=== PATIENT | male | born 1980 | race Caucasian/White ===

== ENCOUNTER → 2016-09-27 | Outpatient (CLI) | payer BC ==
[2016-09-27 15:31] LABS: CHLORIDE,CL 106 mmol/L (98-110); SODIUM,NA 140 mmol/L (136-146)
== END ==
LOC: MW.CHFP 14:47
PROVIDERS: ATTEND Student in an Organized Health Care Education/Training Program
DX: E29.1 Testicular hypofunction (principal)
CPT/HCPCS: 36415; 80053; 84402; 84403; 85025

== ENCOUNTER → 2016-10-21 | Outpatient (CLI) | payer OTHER ==
--- NOTE | 2016-10-21 14:37 | CR ---
EXAMINATION: Left knee HISTORY: Injury COMPARISON: None TECHNIQUE: 4 views FINDINGS/IMPRESSION: There is no acute osseous abnormality, dislocation, or fracture. Bone mineraliz ation and joint spaces appear normal. There is prominent prepatellar soft tissue thickening.
== END ==
LOC: MW.CHFP 10:22
PROVIDERS: ATTEND Physician Assistant
DX: S89.92XA Unspecified injury of left lower leg, initial encounter (principal); M79.89 Other specified soft tissue disorders
CPT/HCPCS: 73564-26-LT; 73564-LT

== ENCOUNTER 2017-03-10 20:41 | Observation (INO) | payer BC ==
[~2017-03-10 20:41] MED LIST: Diltiazem 25 MG/5 ML SDV IVPUSH ONE
[2017-03-10] MEDS ORDERED: Sodium Chloride 0.9% 1,000 ML IV ONE ×2 (20:54→21:34)
[2017-03-10] MEDS ORDERED: Diltiazem 25 MG/5 ML SDV IVPUSH ONE ×2 (20:54→21:24)
--- NOTE | 2017-03-10 20:55 | EDM.PDOC ---
ED HPI GENERAL MEDICAL PROBLEM - General Chief Complaint: Chest Pain Stated Complaint: CHEST PAIN Time Seen by Provider: 03/10/17 20:54 Source of Information: Reports: Patient - History of Present Illness INITIAL COMMENTS - FREE TEXT/NARRATIVE: HISTORY AND PHYSICAL: History of present illness: []Patient presents with right-sided chest pain radiating into the right arm he rates 5 out of 10 there is a reproducible component no radiation to neck or jaw not associated with shortness of breath or diaphoresis However his rate is in the 150s he received Cardizem 20 mg IV followed by 25 mg of Cardizem which did control rate along with digoxin 0.125 and 2 L bolus Currently he is resting easily in the 80s for her rate cautery still does have the pain is a reproducible component to the pain there is clear muscle spasm over right pack major No fever nausea vomiting chills sweats Denies chronic illness disease alcoholism or illicit drug use Review of systems: As per history of present illness and below otherwise all systems reviewed and negative. Past medical history: As per history of present illness and as reviewed below otherwise noncontributory. Surgical history: As per history of present illness and as reviewed below otherwise noncontributory. Social history: No reported history of drug or alcohol abuse. Family history: As per history of present illness and as reviewed below otherwise noncontributory. Physical exam: HEENT: Atraumatic, normocephalic, pupils reactive, negative for conjunctival pallor or scleral icterus, mucous membranes moist, throat clear, neck supple, nontender, trachea midline. Lungs: Clear to auscultation, breath sounds equal bilaterally, chest nontender. Heart: S1S2, regular, negative for clicks, rubs, or JVD. Abdomen: Soft, nondistended, nontender. Negative for masses or hepatosplenomegaly. Negative for costovertebral tenderness. Pelvis: Stable nontender. Genitourinary: Deferred. Rectal: Deferred. Extremities: Atraumatic, negative for cords or calf pain. Neurovascular unremarkable. Neuro: Awake, alert, oriented. Cranial nerves II through XII unremarkable. Cerebellum unremarkable. Motor and sensory unremarkable throughout. Exam nonfocal. Diagnostics: []Lab as below EKG Chest 1 view Therapeutics: []Liter normal saline bolus 2 Cardizem 20 mg IV, Cardizem 25 mg IV Digoxin 0.125 g IV Impression: []A. fib with RVR Definitive disposition and diagnosis as appropriate pending reevaluation and review of above. Right Anterior Chest Pain Score (Numeric/FACES): 6 - Related Data Allergies Allergy/AdvReac Type Severity Reaction Status Date / Time No Known Allergies Allergy Verified 03/10/17 20:44 Home Meds: Home Meds Citalopram [Citalopram Hbr] 30 mg PO DAILY 12/14/13 [History] buPROPion HCl [Wellbutrin SR] 300 mg PO DAILY 12/14/13 [History] Past Medical History - Past Health History Medical/Surgical History: Denies Medical/Surgical History Cardiovascular History: Reports: None Respiratory History: Reports: None Gastrointestinal History: Reports: None Genitourinary History: Reports: None Musculoskeletal History: Reports: None Neurological History: Reports: None Psychiatric History: Reports: Anxiety, Depression Endocrine/Metabolic History: Reports: None Dermatologic History: Reports: None - Infectious Disease History Infectious Disease History: Reports: Chicken Pox - Past Surgical History HEENT Surgical History: Reports: Other (See Below) Other HEENT Surgeries/Procedures: facial reconstruction Cardiovascular Surgical History: Reports: None Respiratory Surgical History: Reports: None Musculoskeletal Surgical History: Reports: None Social & Family History - Family History Family Medical History: Noncontributory - Tobacco Use Smoking Status *Q: Current Every Day Smoker Years of Tobacco use: 20 Packs/Tins Daily: 1.5 - Alcohol Use Days Per Week of Alcohol Use: 2 Number of Drinks Per Day: 2 Total Drinks Per Week: 4 - Recreational Drug Use Recreational Drug Use: No ED ROS GENERAL - Review of Systems Review Of Systems: ROS reveals no pertinent complaints other than HPI. ED EXAM, GENERAL - Physical Exam Exam: See Below Course - Vital Signs Last Recorded V/S: Last Vital Signs Temp 36.6 C 03/10/17 20:45 Pulse 166 H 03/10/17 21:03 Resp 16 03/10/17 20:45 BP 107/69 03/10/17 21:03 Pulse Ox 98 03/10/17 20:45 - Orders/Labs/Meds Orders: Active Orders 24 hr Category Date Time Status EKG 12 Lead [EKG Documentation Completion] [RC] STAT Care 03/10/17 20:47 Active Chest 1V Frontal [CR] Stat Exams 03/10/17 20:54 Taken DRUG SCREEN, URINE [URCHEM] Stat Lab 03/10/17 20:54 Uncollected UA W/MICROSCOPIC [URIN] Stat Lab 03/10/17 20:54 Uncollected Digoxin [Lanoxin] Med 03/11/17 09:00 Active 125 mcg IVPUSH DAILY Sodium Chloride 0.9% [Normal Saline] 1,000 ml Med 03/10/17 21:34 Active IV .BOLUS Sodium Chloride 0.9% [Normal Saline] 1,000 ml Med 03/10/17 22:00 Active IV STAT Sodium Chloride 0.9% [Normal Saline] 1,000 ml Med 03/10/17 22:00 Active IV STAT Medication Orders Digoxin (Lanoxin) 125 mcg IVPUSH DAILY FABY Sodium Chloride (Normal Saline) 1,000 mls @ 999 mls/hr IV .BOLUS ONE Stop: 03/10/17 22:34 Last Admin: 03/10/17 21:36 Dose: 999 mls/hr Sodium Chloride (Normal Saline) 1,000 mls @ 125 mls/hr IV STAT FABY Sodium Chloride (Normal Saline) 1,000 mls @ 125 mls/hr IV STAT FABY Labs: Laboratory Tests 03/10/17 03/10/17 03/10/17 Range/Units 20:59 20:59 20:59 WBC 11.24 H (4.0-11.0) K/uL RBC 4.96 (4.50-5.90) M/uL Hgb 15.7 (13.0-17.0) g/dL Hct 45.9 (38.0-50.0) % MCV 92.5 (80.0-98.0) fL MCH 31.7 (27.0-32.0) pg MCHC 34.2 (31.0-37.0) g/dL RDW Std Deviation 45.1 (28.0-62.0) fl RDW Coeff of Lamberto 13 (11.0-15.0) % Plt Count 187 (150-400) K/uL MPV 9.90 (7.40-12.00) fL Neut % (Auto) 69.0 (48.0-80.0) % Lymph % (Auto) 20.7 (16.0-40.0) % [place] % (Auto) 8.1 (0.0-15.0) % Eos % (Auto) 1.8 (0.0-7.0) % Baso % (Auto) 0.4 (0.0-1.5) % Neut # (Auto) 7.8 H (1.4-5.7) K/uL Lymph # (Auto) 2.3 (0.6-2.4) K/uL [place] # (Auto) 0.9 H (0.0-0.8) K/uL Eos # (Auto) 0.2 (0.0-0.7) K/uL Baso # (Auto) 0.0 (0.0-0.1) K/uL Nucleated RBC % 0.0 /100WBC Nucleated RBCs # 0 K/uL Sodium 140 (136-146) mmol/L Potassium 4.5 (3.5-5.1) mmol/L Chloride 112 H (98-110) mmol/L Carbon Dioxide 18 L (21-31) mmol/L BUN 18 (6.0-23.0) mg/dL Creatinine 1.1 (0.6-1.5) mg/dL Est Cr Clr Drug Dosing 106.90 mL/min Estimated GFR (MDRD) > 60.0 ml/min Glucose 121 H (60-110) mg/dL Calcium 9.5 (8.8-10.8) mg/dL Total Bilirubin 0.4 (0.1-1.5) mg/dL AST 25 (5-40) IU/L ALT 40 (8-54) IU/L Alkaline Phosphatase 144 (40-150) Creatine Kinase 140 (9-236) IU/L CK-MB (CK-2) 1.7 (0-6.6) ng/ml Troponin I < 0.10 (0.0-0.29) NG/ML Total Protein 6.9 (6.0-8.0) g/dL Albumin 4.1 (3.5-5.0) g/dL Globulin 2.8 (2.0-3.5) g/dL Albumin/Globulin Ratio 1.5 (1.3-2.8) Meds: Medications Generic Name Dose Route Start Last Admin Trade Name Freq PRN Reason Stop Dose Admin Digoxin 125 mcg 03/11/17 09:00 Lanoxin IVPUSH DAILY FABY Sodium Chloride 1,000 mls @ 999 mls/hr 03/10/17 21:34 03/10/17 21:36 Normal Saline IV 03/10/17 22:34 999 mls/hr .BOLUS ONE Administration Sodium Chloride 1,000 mls @ 125 mls/hr 03/10/17 22:00 Normal Saline IV STAT FABY Sodium Chloride 1,000 mls @ 125 mls/hr 03/10/17 22:00 Normal Saline IV STAT FABY Discontinued Medications Generic Name Dose Route Start Last Admin Trade Name Freq PRN Reason Stop Dose Admin Diltiazem HCl 20 mg 03/10/17 20:54 03/10/17 21:16 Diltiazem IVPUSH 03/10/17 20:55 20 mg ONETIME ONE Administration Diltiazem HCl 25 mg 03/10/17 21:24 03/10/17 21:30 Diltiazem IVPUSH 03/10/17 21:25 25 mg ONETIME ONE Administration Sodium Chloride 1,000 mls @ 999 mls/hr 03/10/17 20:54 03/10/17 21:02 Normal Saline IV 03/10/17 21:54 999 mls/hr STAT ONE Administration Metoprolol Tartrate 5 mg 03/10/17 20:57 03/10/17 21:03 Lopressor IVPUSH 03/10/17 20:58 5 mg ONETIME ONE Administration Departure - Departure Time of Disposition: 22:24 Disposition: Refer to Observation Condition: Fair Clinical Impression: Atrial fibrillation with RVR - Discharge Information Forms: ED Department Discharge - My Orders Last 24 Hours: My Active Orders 03/10/17 20:47 EKG 12 Lead [EKG Documentation Completion] [RC] STAT 03/10/17 20:54 Chest 1V Frontal [CR] Stat DRUG SCREEN, URINE [URCHEM] Stat UA W/MICROSCOPIC [URIN] Stat 03/10/17 21:34 Sodium Chloride 0.9% [Normal Saline] 1,000 ml IV .BOLUS 03/10/17 22:00 Sodium Chloride 0.9% [Normal Saline] 1,000 ml IV STAT Sodium Chloride 0.9% [Normal Saline] 1,000 ml IV STAT 03/11/17 09:00 Digoxin [Lanoxin] 125 mcg IVPUSH DAILY - Assessment/Plan Last 24 Hours: My Active Orders 03/10/17 20:47 EKG 12 Lead [EKG Documentation Completion] [RC] STAT 03/10/17 20:54 Chest 1V Frontal [CR] Stat DRUG SCREEN, URINE [URCHEM] Stat UA W/MICROSCOPIC [URIN] Stat 03/10/17 21:34 Sodium Chloride 0.9% [Normal Saline] 1,000 ml IV .BOLUS 03/10/17 22:00 Sodium Chloride 0.9% [Normal Saline] 1,000 ml IV STAT Sodium Chloride 0.9% [Normal Saline] 1,000 ml IV STAT 03/11/17 09:00 Digoxin [Lanoxin] 125 mcg IVPUSH DAILY
[2017-03-10] MEDS ORDERED: Metoprolol Tartrate 5 MG/5 ML SDV IVPUSH ONE (20:57)
[2017-03-10 21:28] LABS: CHLORIDE,CL 112 mmol/L (98-110); SODIUM,NA 140 mmol/L (136-146)
[2017-03-10] MEDS ORDERED: Sodium Chloride 0.9% 1,000 ML IV SCH ×2 (22:00)
[2017-03-10] MEDS ORDERED: Ketorolac 30 MG/ML SDV IVPUSH ONE (22:31)
[2017-03-10] MEDS ORDERED: Sodium Chloride 0.9% 10 ML Syringe FLUSH PRN (23:51)
[2017-03-10] MEDS ORDERED: Sodium Chloride 0.9% 2.5 ML Syringe FLUSH PRN (23:51)
[2017-03-10] MEDS ORDERED: Diltiazem 25 MG/5 ML SDV IVPUSH PRN (23:52)
[2017-03-10] MEDS ORDERED: Morphine 2 MG/ML Syringe IVPUSH PRN (23:53)
[2017-03-10] MEDS ORDERED: Ondansetron 4 MG/2 ML SDV IVPUSH PRN (23:54)
[2017-03-11] MEDS: Metoprolol Tartrate 50 MG Tab PO SCH ×2 (00:11→09:09)
[2017-03-11] MEDS ORDERED: Alum Hydrox/Mag Hydrox/Simeth 15 ML, Lidocaine 2% 5 ML PO ONE ×2 (06:20)
[2017-03-11] MEDS ORDERED: Magnesium Sulfate/Water 2 GM in Premix Bag 1 BAG IV ONE (06:26)
--- NOTE | 2017-03-11 06:27 | PCM.HP ---
H&P History of Present Illness - General Date of Service: 03/11/17 Admit Problem/Dx: Admission Diagnosis/Problem Admission Diagnosis/Problem Afib, Atrial fibrillation - History of Present Illness Initial Comments - Free Text/Narative: 36 yo male who presents with chest pain. He reports one day history of chest pain which he reported started as a sore throat then he took ibuprofen and later the pain transfered to his right upper chest and now it is substernal. Deep breaths make it worse and that pain takes his breath away. He reports shortness of breath. In the ED he was noted to be in atrial fibrillation with RVR. He was given IV Cardizem and digoxin with improvement in his heart rate. Initial EKG and troponin did not show any signs of ischemia. Right Anterior Chest Pain Score (Numeric/FACES): 7 - Related Data Allergies/Adverse Reactions: Allergies Allergy/AdvReac Type Severity Reaction Status Date / Time No Known Allergies Allergy Verified 03/10/17 20:44 Home Medications: Home Meds Citalopram [Citalopram HBr] 30 mg PO DAILY 12/14/13 [History] buPROPion HCl [Wellbutrin SR] 300 mg PO DAILY 12/14/13 [History] Testosterone Cypionate 03/10/17 [History] Aspirin 325 mg PO DAILY #30 tablet 03/11/17 [Rx] Pantoprazole Sodium [Protonix] 40 mg PO DAILY #30 tablet. 03/11/17 [Rx] Diltiazem [Cardizem] 30 mg PO Q6HR #60 tablet 03/12/17 [Rx] Metoprolol Tartrate [Lopressor] 100 mg PO Q12HR #30 tablet 03/12/17 [Rx] Past Medical History - Past Health History Medical/Surgical History: Denies Medical/Surgical History Cardiovascular History: Reports: None Respiratory History: Reports: Sleep Apnea Other Respiratory History: Uses CPAP at home Gastrointestinal History: Reports: None Genitourinary History: Reports: None Musculoskeletal History: Reports: Fracture Other Musculoskeletal History: Fractured collar bone in "seventh grade" Neurological History: Reports: None Psychiatric History: Reports: Anxiety, Depression Endocrine/Metabolic History: Reports: None Hematologic History: Reports: None Immunologic History: Reports: None Oncologic (Cancer) History: Reports: None Dermatologic History: Reports: None - Infectious Disease History Infectious Disease History: Reports: Chicken Pox - Past Surgical History HEENT Surgical History: Reports: Other (See Below) Other HEENT Surgeries/Procedures: facial reconstruction Cardiovascular Surgical History: Reports: None Respiratory Surgical History: Reports: None Musculoskeletal Surgical History: Reports: None Social & Family History - Family History Family Medical History: Noncontributory Cardiac: Reports: [place] Other Cardiac Family History: Father had heart attack X 5 years ago - Tobacco Use Smoking Status *Q: Current Every Day Smoker Years of Tobacco use: 20 Packs/Tins Daily: 1.5 Second Hand Smoke Exposure: No - Caffeine Use Caffeine Use: Reports: Soda - Alcohol Use Days Per Week of Alcohol Use: 2 Number of Drinks Per Day: 2 Total Drinks Per Week: 4 Date of Last Drink: 03/09/17 Time of Last Drink: 20:30 - Recreational Drug Use Recreational Drug Use: No H&P Review of Systems - Review of Systems: Review Of Systems: ROS reveals no pertinent complaints other than HPI. Exam - Exam Exam: See Below - Vital Signs Vital Signs: Last Vital Signs Temp 36.5 C 03/11/17 05:02 Pulse 84 03/11/17 05:02 Resp 20 03/11/17 05:02 BP 139/76 03/11/17 05:02 Pulse Ox 96 03/11/17 05:02 Weight: 129.274 kg - Exam General: Alert, Oriented, 4 HEENT: Posterior Pharynx Clear Cardiovascular: Regular Rate, Irregular Rhythm GI/Abdominal Exam: Normal Bowel Sounds, No Distention Extremities: No Pedal Edema Skin: Warm, Dry, Intact - Patient Data Lab Results Last 24 hrs: Laboratory Results - last 24 hr 03/10/17 03/10/17 03/11/17 Range/Units 22:50 22:50 02:52 Troponin I < 0.10 (0.0-0.29) NG/ML Urine Color YELLOW Urine Appearance CLEAR Urine pH 5.5 (5.0-8.0) Ur Specific [place] >= 1.030 (1.001-1.035) Urine Protein NEGATIVE (NEGATIVE) mg/dL Urine Glucose (UA) NEGATIVE (NEGATIVE) mg/dL Urine Ketones NEGATIVE (NEGATIVE) mg/dL Urine Occult Blood NEGATIVE (NEGATIVE) Urine Nitrite NEGATIVE (NEGATIVE) Urine Bilirubin NEGATIVE (NEGATIVE) Urine Urobilinogen 0.2 (<2.0) EU/dL Ur Leukocyte Esterase NEGATIVE (NEGATIVE) Urine RBC 0-1 (0-2/HPF) Urine WBC 0-1 (0-5/HPF) Ur Epithelial Cells FEW (NONE-FEW) Amorphous Sediment FEW (NEGATIVE) Urine Bacteria RARE (NEGATIVE) Urine Opiates Screen NEGATIVE (NEGATIVE) Ur Oxycodone Screen NEGATIVE (NEGATIVE) Urine Methadone Screen NEGATIVE (NEGATIVE) Ur Barbiturates Screen NEGATIVE (NEGATIVE) Ur Phencyclidine Scrn NEGATIVE (NEGATIVE) Ur Amphetamine Screen NEGATIVE (NEGATIVE) U Methamphetamines Scrn NEGATIVE (NEGATIVE) U Benzodiazepines Scrn NEGATIVE (NEGATIVE) U Cocaine Metab Screen NEGATIVE (NEGATIVE) U Marijuana (THC) Screen NEGATIVE (NEGATIVE) Result Diagrams: 03/12/17 05:07 03/12/17 05:07 *Q Meaningful Use (ADM) - VTE *Q VTE Criteria *Q: - Stroke *Q Stroke Criteria *Q: - AMI *Q AMI Criteria *Q: Problem List Initiated/Reviewed/Updated: Yes Orders Last 24hrs: Active Orders 24 hr Category Date Time Status EKG 12 Lead [EKG Documentation Completion] [RC] ROUTINE Care 03/11/17 04:42 Active Telemetry Monitoring [Cardiac Monitoring] [RC] Q8H Care 03/10/17 23:49 Active Heart Healthy Diet [DIET] Diet 03/11/17 Breakfast Active Chest PE [Ang Chest] [CT] Stat Exams 03/11/17 06:18 Ordered TROPONIN I [CHEM] Q6H Lab 03/11/17 09:00 Ordered Diltiazem Med 03/10/17 23:52 Active 10 mg IVPUSH Q3H PRN GI Cocktail 20 ML PO x 1 Med 03/11/17 06:20 Ordered Alum Hydrox/Mag Hydrox/Simeth [Mag-Al Plus] 15 ml Lidocaine 2% [Xylocaine 2% Viscous] 5 ml PO ONETIME Metoprolol Tartrate [Lopressor] Med 03/10/17 23:45 Active 50 mg PO Q12HR Morphine Med 03/10/17 23:53 Active 2 mg IVPUSH Q3H PRN Ondansetron [Zofran] Med 03/10/17 23:54 Active 4 mg IVPUSH Q3H PRN Sodium Chloride 0.9% [Saline Flush] Med 03/10/17 23:51 Active 10 ml FLUSH ASDIRECTED PRN Sodium Chloride 0.9% [Saline Flush] Med 03/10/17 23:51 Active 2.5 ml FLUSH ASDIRECTED PRN Convert IV to Saline Lock [OM.PC] Routine Oth 03/10/17 23:51 Ordered Medication Orders Al Hydroxide/Mg Hydroxide 15 (ml/ Lidocaine HCl 5 ml) 0 ml PO ONETIME ONE Stop: 03/11/17 06:21 Digoxin (Lanoxin) 125 mcg IVPUSH DAILY FABY Diltiazem HCl (Diltiazem) 10 mg IVPUSH Q3H PRN PRN Reason: Other Last Admin: 03/11/17 03:46 Dose: 10 mg Metoprolol Tartrate (Lopressor) 50 mg PO Q12HR FABY Last Admin: 03/11/17 00:11 Dose: 50 mg Morphine Sulfate (Morphine) 2 mg IVPUSH Q3H PRN PRN Reason: Pain Last Admin: 03/11/17 03:52 Dose: 2 mg Ondansetron HCl (Zofran) 4 mg IVPUSH Q3H PRN PRN Reason: Nausea/Vomiting Sodium Chloride (Saline Flush) 10 ml FLUSH ASDIRECTED PRN PRN Reason: Keep Vein Open Sodium Chloride (Saline Flush) 2.5 ml FLUSH ASDIRECTED PRN PRN Reason: Keep Vein Open Assessment/Plan Comment:: 36 yo male admitted with chest pain Chest pain: will trend cardiac enzymes, morphine prn, Will get CT scan of chest for further evaluation Atrial fibrillation: has received multiple doses of IV diltiazem, have started metoprolol, will continue to monitor heart rate. Update: CT angio reports no PE, mildly enlarged heart, and nonspecific mildly enlarged thoracic lymph nodes which the radiologist recommended followup CT in 6 months Patient remains chest pain free and rate controlled on oral metroprolol. Plan: will discharge home on metoprolol 100mg BID and Aspirin daily. He is to follow up with Dr. Blank as outpatient. Report from Echocardiogram is pending at time of discharge. Will also send home on protonix as chest pain could be GI in nature. PAtient was informed of CT chest scan findings and recommendations for follow up CT scan in 6 months.
[2017-03-11] MEDS ORDERED: Diltiazem 25 MG/5 ML SDV IVPUSH ONE ×2 (06:32→16:18)
[2017-03-11] MEDS ORDERED: Iopamidol 755 MG/ML 500 ML Multipack Bottle IVPUSH STA (08:25)
[2017-03-11] MEDS: Digoxin 500 MCG/2 ML Amp IVPUSH SCH (09:02)
--- NOTE | 2017-03-11 10:46 | CR ---
EXAM DATE: 03/10/17 PATIENT'S AGE: 36 Patient: SIS STUBBS Facility: [place], [place] Site . Site : 1980 Study: XRay Chest [id number]/28/[id number] 9:27:04 PM Ordering Physician: Samantha Jean Final Report: INDICATION: CHEST PAIN/SHORTNESS OF BREATH TECHNIQUE: Chest 1 view. COMPARISON: 12/20/16 FINDINGS: Cardiovascular and mediastinum: Heart size and vasculature are normal in caliber and appearance. Mediastinum is within normal limits. Lungs and pleural space: Lungs are clear. No sign of infiltrate or mass. No sign of pleural effusion. No pneumothorax. Bones and soft tissues: No significant findings. IMPRESSION: Unremarkable chest. Dictated by: Angel Rendon MD @ 03/10/2017 21:41:00 (Electronic Signature) Report Signed by Proxy. ESTEFANIA
[2017-03-11] MEDS: Pantoprazole 40 MG in Sodium Chloride 0.9% 10 ML IVPUSH SCH (10:47)
--- NOTE | 2017-03-11 10:48 | CT ---
EXAM DATE: 03/10/17 PATIENT'S AGE: 36 Patient: SIS STUBBS Facility: [place], [place] Site . Site : 1980 Study: CT Chest Angio [id number]/29/2017 8:48:56 AM Ordering Physician: Ant Slater Final Report: INDICATION: Chest pain and shortness of breath. TECHNIQUE: Contiguous axial images were acquired through the chest after the intravenous administration of 50 mL of Isovue, with image acquisition timed for pulmonary arterial enhancement. Sagittal and coronal reconstructions. COMPARISON: No prior chest CT. FINDINGS: There is adequate contrast opacification of the pulmonary arteries with no appreciable filling defects to suggest an acute pulmonary embolus. Heart is mildly enlarged for patient`s age. No pericardial effusion. Normal caliber thoracic aorta. A number of small lymph nodes are seen scattered throughout the chest. A few of these are mildly enlarged. For example, a right paratracheal lymph node on axial image 114 has a short axis diameter of 1.1 cm. An AP window lymph node on axial image 201 has a short axis diameter of 1 cm. These are nonspecific. In the lungs, there is smooth septal thickening with peribronchial thickening suggestive of interstitial edema. No significant pleural fluid. No acute abnormality in the visualized upper abdomen. No acute bony abnormality. IMPRESSION: 1. No CT evidence of acute pulmonary embolus. 2. The heart is mildly enlarged, with findings suggestive of interstitial edema. No pleural effusion. 3. Nonspecific mildly enlarged thoracic lymph nodes. These could be reactive in nature. The possibility of a lymphoproliferative disorder is not excluded. Recommend clinical correlation with a [address] Dictated by Willy Rome MD @ 03/11/2017 9:18:18 AM Dictated by: Willy Rome MD @ 03/11/2017 09:18:29 (Electronic Signature) Report Signed by Proxy. [facility]' HOSPITALBhupendra
[2017-03-11] MEDS ORDERED: Metoprolol Tartrate 25 MG Tab PO SCH (12:45)
--- NOTE | 2017-03-11 19:00 | PCM.SN ---
- Free Text/Narrative Note: Patients HR was controlled and chest pain resolved. He was ready for discharge. Then chest pain returned and HR increased up to 100-120. He was given Cardizem 25 mg IV. Lopressor PO was increased to 100 mg TID. His HR improved but then increased again with ambulation. Patient will remain for additional day of observation with telemetry.
[2017-03-11] MEDS: Metoprolol Tartrate 25 MG Tab PO SCH (20:29)
--- NOTE | 2017-03-12 05:20 | PCM.DCSUM1 ---
<Jeanie,Alexi - Last Filed: 03/12/17 13:26> Discharge Summary - Hospital Course Free Text/Narrative:: 36 yo male admitted 03/10 for AF with RVR. He presented to ED with heart palpitations and substernal chest pain radiating to neck. Initial EKG and troponin did not show any signs of ischemia. He was given IV Cardizem and digoxin with improvement in his heart rate. He was transferred to the floor for observation and telemetry. His heart rate began to increase again, ekg was done which revealed slight st elevation on only lead 2. CTA was done which was negative. Monitoring was continued. He was treated with IV cardizem and started on Metoprolol 75 mg PO BID. His HR decreased again and chest pain began to improve. Echo was obtained. Patient was planned for discharge but chest pain returned and hr began to increase. He was given Cardizem 25 mg IV but improvement was minimal. Decision made to keep patient another night for monitoring and increasing Metoprolol to 100 mg BID. His HR was still fluctuating bw 100-140. Cardizem 30 mg [id number] was started which did result in the improvement of HR to 70-100. He was discharged home on 03/12. F/U appointment was arranged for him with Dr. Espinal from Cardiology on tuesday03/18/17. Appointment was also made with PCP. He was discharged home on Metoprolol 100 mg PO BID and Cardizem 30 mg [id number]. Based on [id number] score he was sent home on Aspirin 325 mg daily. He was also educated on importance of alcohol cessation. Discharge Diagnosis: 1. AF With RVR, rate controlled 2. Chest Pain 3. Alcohol Use Disorder 4. Esophageal Reflux Discharge Plan: 1. Metoprolol 100 mg PO BID 3. Aspirin 325 mg QD 4. Alcohol Cessation 5. f/u with Dr. Espinal, Cardiology 6. f/u with PCP 7. Protonix 40 mg PO Daily, 30 tabs - Discharge Data Discharge Date: 03/12/17 Discharge Disposition: Home, Self-Care 01 Condition: Good - Patient Instructions Diet: Heart Healthy Diet, No Alcoholic Beverages Activity: As Tolerated Showering/Bathing: May Shower Notify Provider of: Fever, Increased Pain, Swelling and Redness, Drainage, Nausea and/or Vomiting - Discharge Plan Prescriptions/Med Rec: Diltiazem [Cardizem] 30 mg PO Q6HR #60 tablet Metoprolol Tartrate [Lopressor] 100 mg PO Q12HR #30 tablet Aspirin 325 mg PO DAILY #30 tablet Pantoprazole Sodium [Protonix] 40 mg PO DAILY #30 tablet. Home Medications: Home Meds Citalopram [Citalopram HBr] 30 mg PO DAILY 12/14/13 [History] buPROPion HCl [Wellbutrin SR] 300 mg PO DAILY 12/14/13 [History] Testosterone Cypionate 03/10/17 [History] Aspirin 325 mg PO DAILY #30 tablet 03/11/17 [Rx] Pantoprazole Sodium [Protonix] 40 mg PO DAILY #30 tablet. 03/11/17 [Rx] Diltiazem [Cardizem] 30 mg PO Q6HR #60 tablet 03/12/17 [Rx] Metoprolol Tartrate [Lopressor] 100 mg PO Q12HR #30 tablet 03/12/17 [Rx] Patient Handouts: Aspirin, ASA chewable tablets, Metoprolol tablets, Pantoprazole tablets, Diltiazem tablets, Atrial Fibrillation, [id number] Referrals: Young Espinal MD [Physician] - 03/18/17 1:00 pm Angel Dawn MD [Physician] - 03/23/17 11:00 am - Patient Data Vitals - Most Recent: Last Vital Signs Temp 36.2 C 03/12/17 00:00 Pulse 70 03/12/17 00:00 Resp 16 03/12/17 00:00 BP 137/70 03/12/17 00:00 Pulse Ox 95 03/12/17 00:00 Weight - Most Recent: 129.274 kg I&O - Last 24 hours: Intake & Output 03/11/17 03/11/17 03/12/17 14:59 22:59 06:59 Intake Total 60 600 Output Total 700 Balance 60 -100 Lab Results - Last 24 hrs: Laboratory Results - last 24 hr 03/11/17 03/11/17 03/11/17 Range/Units 02:52 07:43 09:04 INR 1.03 (0.86-1.11) Troponin I < 0.10 (0.0-0.29) NG/ML Free T4 0.80 (0.7-1.48) ng/dL TSH 3rd Generation 1.59 (0.47-5.0) uIU/mL Med Orders - Current: Current Medications Digoxin (Lanoxin) 125 mcg IVPUSH DAILY [facility] [place] Last Admin: 03/11/17 09:02 Dose: 125 mcg Pantoprazole Sodium 40 mg/ (Sodium Chloride) 10 mls @ 300 mls/hr IVPUSH DAILY [facility] [place] Last Admin: 03/11/17 10:47 Dose: 300 mls/hr Metoprolol Tartrate (Lopressor) 100 mg PO Q12HR [facility] [place] Last Admin: 03/11/17 20:29 Dose: 100 mg Morphine Sulfate (Morphine) 2 mg IVPUSH Q3H PRN PRN Reason: Pain Last Admin: 03/11/17 03:52 Dose: 2 mg Ondansetron HCl (Zofran) 4 mg IVPUSH Q3H PRN PRN Reason: Nausea/Vomiting Sodium Chloride (Saline Flush) 10 ml FLUSH ASDIRECTED PRN PRN Reason: Keep Vein Open Sodium Chloride (Saline Flush) 2.5 ml FLUSH ASDIRECTED PRN PRN Reason: Keep Vein Open Discontinued Medications Al Hydroxide/Mg Hydroxide 15 (ml/ Lidocaine HCl 5 ml) 0 ml PO ONETIME ONE Stop: 03/11/17 06:21 Last Admin: 03/11/17 07:36 Dose: 1 each Diltiazem HCl (Diltiazem) 20 mg IVPUSH ONETIME ONE Stop: 03/10/17 20:55 Last Admin: 03/10/17 21:16 Dose: 20 mg Diltiazem HCl (Diltiazem) 25 mg IVPUSH ONETIME ONE Stop: 03/10/17 21:25 Last Admin: 03/10/17 21:30 Dose: 25 mg Diltiazem HCl (Diltiazem) 10 mg IVPUSH Q3H PRN PRN Reason: Other Last Admin: 03/11/17 03:46 Dose: 10 mg Diltiazem HCl (Diltiazem) 10 mg IVPUSH ONETIME ONE Stop: 03/10/17 06:33 Last Admin: 03/11/17 08:03 Dose: Not Given Diltiazem HCl (Diltiazem) 10 mg IVPUSH ONETIME ONE Stop: 03/11/17 06:33 Last Admin: 03/11/17 06:44 Dose: 10 mg Diltiazem HCl (Diltiazem) 25 mg IVPUSH ONETIME ONE Stop: 03/11/17 16:19 Last Admin: 03/11/17 16:34 Dose: 25 mg Sodium Chloride (Normal Saline) 1,000 mls @ 999 mls/hr IV STAT ONE Stop: 03/10/17 21:54 Last Admin: 03/10/17 21:02 Dose: 999 mls/hr Sodium Chloride (Normal Saline) 1,000 mls @ 999 mls/hr IV .BOLUS ONE Stop: 03/10/17 22:34 Last Admin: 03/10/17 21:36 Dose: 999 mls/hr Sodium Chloride (Normal Saline) 1,000 mls @ 125 mls/hr IV STAT FABY Last Admin: 03/10/17 22:44 Dose: 125 mls/hr Sodium Chloride (Normal Saline) 1,000 mls @ 125 mls/hr IV STAT FABY Magnesium Sulfate 2 gm/ Premix 50 mls @ 50 mls/hr IV ONETIME ONE Stop: 03/11/17 07:25 Last Admin: 03/11/17 06:44 Dose: 50 mls/hr Iopamidol (Isovue Multipack-370 (76%)) 50 ml IVPUSH ONETIME STA Stop: 03/11/17 08:26 Last Admin: 03/11/17 08:26 Dose: 50 ml Ketorolac Tromethamine (Toradol) 30 mg IVPUSH ONETIME ONE Stop: 03/10/17 22:32 Last Admin: 03/10/17 22:48 Dose: 30 mg Metoprolol Tartrate (Lopressor) 5 mg IVPUSH ONETIME ONE Stop: 03/10/17 20:58 Last Admin: 03/10/17 21:03 Dose: 5 mg Metoprolol Tartrate (Lopressor) 50 mg PO Q12HR FABY Last Admin: 03/11/17 09:09 Dose: 50 mg Metoprolol Tartrate (Lopressor) 75 mg PO Q12HR FABY *Q Meaningful Use (DIS) - VTE *Q VTE Criteria *Q: - Stroke *Q Stroke Criteria *Q: - AMI *Q AMI Criteria *Q: <Bryon Cain - Last Filed: 03/14/17 19:51> - Patient Data Vitals - Most Recent: Last Vital Signs Temp 36.9 C 03/12/17 12:00 Pulse 86 03/12/17 12:00 Resp 16 03/12/17 12:00 BP 128/83 03/12/17 12:00 Pulse Ox 95 03/12/17 12:00 Med Orders - Current: Current Medications Discontinued Medications Al Hydroxide/Mg Hydroxide 15 (ml/ Lidocaine HCl 5 ml) 0 ml PO ONETIME ONE Stop: 03/11/17 06:21 Last Admin: 03/11/17 07:36 Dose: 1 each Digoxin (Lanoxin) 125 mcg IVPUSH DAILY [facility] [place] Last Admin: 03/12/17 08:17 Dose: 125 mcg Diltiazem HCl (Diltiazem) 20 mg IVPUSH ONETIME ONE Stop: 03/10/17 20:55 Last Admin: 03/10/17 21:16 Dose: 20 mg Diltiazem HCl (Diltiazem) 25 mg IVPUSH ONETIME ONE Stop: 03/10/17 21:25 Last Admin: 03/10/17 21:30 Dose: 25 mg Diltiazem HCl (Diltiazem) 10 mg IVPUSH Q3H PRN PRN Reason: Other Last Admin: 03/11/17 03:46 Dose: 10 mg Diltiazem HCl (Diltiazem) 10 mg IVPUSH ONETIME ONE Stop: 03/10/17 06:33 Last Admin: 03/11/17 08:03 Dose: Not Given Diltiazem HCl (Diltiazem) 10 mg IVPUSH ONETIME ONE Stop: 03/11/17 06:33 Last Admin: 03/11/17 06:44 Dose: 10 mg Diltiazem HCl (Diltiazem) 25 mg IVPUSH ONETIME ONE Stop: 03/11/17 16:19 Last Admin: 03/11/17 16:34 Dose: 25 mg Diltiazem HCl (Cardizem) 30 mg PO Q6HR [facility] [place] Last Admin: 03/12/17 12:39 Dose: 30 mg Sodium Chloride (Normal Saline) 1,000 mls @ 999 mls/hr IV STAT ONE Stop: 03/10/17 21:54 Last Admin: 03/10/17 21:02 Dose: 999 mls/hr Sodium Chloride (Normal Saline) 1,000 mls @ 999 mls/hr IV .BOLUS ONE Stop: 03/10/17 22:34 Last Admin: 03/10/17 21:36 Dose: 999 mls/hr Sodium Chloride (Normal Saline) 1,000 mls @ 125 mls/hr IV STAT FABY Last Admin: 03/10/17 22:44 Dose: 125 mls/hr Sodium Chloride (Normal Saline) 1,000 mls @ 125 mls/hr IV STAT FABY Magnesium Sulfate 2 gm/ Premix 50 mls @ 50 mls/hr IV ONETIME ONE Stop: 03/11/17 07:25 Last Admin: 03/11/17 06:44 Dose: 50 mls/hr Pantoprazole Sodium 40 mg/ (Sodium Chloride) 10 mls @ 300 mls/hr IVPUSH DAILY [facility]Y Last Admin: 03/12/17 08:20 Dose: 300 mls/hr Magnesium Sulfate 2 gm/ Premix 50 mls @ 50 mls/hr IV ONETIME ONE Stop: 03/12/17 13:18 Last Admin: 03/12/17 12:38 Dose: 50 mls/hr Iopamidol (Isovue Multipack-370 (76%)) 50 ml IVPUSH ONETIME STA Stop: 03/11/17 08:26 Last Admin: 03/11/17 08:26 Dose: 50 ml Ketorolac Tromethamine (Toradol) 30 mg IVPUSH ONETIME ONE Stop: 03/10/17 22:32 Last Admin: 03/10/17 22:48 Dose: 30 mg Metoprolol Tartrate (Lopressor) 5 mg IVPUSH ONETIME ONE Stop: 03/10/17 20:58 Last Admin: 03/10/17 21:03 Dose: 5 mg Metoprolol Tartrate (Lopressor) 50 mg PO Q12HR [facility] [place] Last Admin: 03/11/17 09:09 Dose: 50 mg Metoprolol Tartrate (Lopressor) 75 mg PO Q12HR FABY Metoprolol Tartrate (Lopressor) 100 mg PO Q12HR [facility] [place] Last Admin: 03/12/17 08:15 Dose: 100 mg Morphine Sulfate (Morphine) 2 mg IVPUSH Q3H PRN PRN Reason: Pain Last Admin: 03/11/17 03:52 Dose: 2 mg Ondansetron HCl (Zofran) 4 mg IVPUSH Q3H PRN PRN Reason: Nausea/Vomiting Sodium Chloride (Saline Flush) 10 ml FLUSH ASDIRECTED PRN PRN Reason: Keep Vein Open Sodium Chloride (Saline Flush) 2.5 ml FLUSH ASDIRECTED PRN PRN Reason: Keep Vein Open *Q Meaningful Use (DIS) - VTE *Q VTE Criteria *Q: - Stroke *Q Stroke Criteria *Q: - AMI *Q AMI Criteria *Q: - Free Text/Narrative Note: I have examined the patient. I have discussed findings and treatment plan with resident. I agree with the assessment and plan outlined in the following resident's note.
[2017-03-12 06:42] LABS: CHLORIDE,CL 106 mmol/L (98-110); SODIUM,NA 137 mmol/L (136-146)
[2017-03-12] MEDS: Metoprolol Tartrate 25 MG Tab PO SCH (08:15)
[2017-03-12] MEDS: Digoxin 500 MCG/2 ML Amp IVPUSH SCH (08:17)
[2017-03-12] MEDS: Pantoprazole 40 MG in Sodium Chloride 0.9% 10 ML IVPUSH SCH (08:20)
[2017-03-12] MEDS: Diltiazem IR 30 MG Tab PO SCH ×2 (10:46→12:39)
[2017-03-12 12:07] VITALS: BP 128/83
[2017-03-12] MEDS ORDERED: Magnesium Sulfate/Water 2 GM in Premix Bag 1 BAG IV ONE (12:19)
--- NOTE | 2017-03-15 17:22 | ECHO ---
EXAM DATE: 03/10/17 PATIENT'S AGE: 36 The echocardiogram report can be seen in this patient's EMR (Electronic Medical Record) in the Reports section. The report has also been scanned into PACs. ESTEFANIA
== END 2017-03-12 14:52 | disposition home or self-care (01) ==
LOC: MW.ED 20:41 → MW.MS 22:31
PROVIDERS: ADMIT Internal Medicine; ATTEND Internal Medicine
DX: I48.91 Unspecified atrial fibrillation (principal); R07.9 Chest pain, unspecified; K21.9 Gastro-esophageal reflux disease without esophagitis; F10.99 Alcohol use, unspecified with unspecified alcohol-induced disorder; F41.9 Anxiety disorder, unspecified; F32.9 Major depressive disorder, single episode, unspecified; Z79.82 Long term (current) use of aspirin; Z79.899 Other long term (current) drug therapy; G47.30 Sleep apnea, unspecified; Z98.890 Other specified postprocedural states; F17.210 Nicotine dependence, cigarettes, uncomplicated
CPT/HCPCS: 36415; 71010; 71275; 80048; 80053; 80305; 81001; 82550; 82553; 83735; 84439; 84443; 84484; 85025; 85610; 93005; 93306; 96361; 96365; 96375; 96376; 99285; A9270; C9113; G0378; J1160; J1885; J2270; J3475; J3490; J7040; Q9967; 96374; 99283

== ENCOUNTER 2018-01-27 15:02 | Emergency (ER) | payer OTHER, BC ==
[2018-01-27 15:24] VITALS: BP 147/91
--- NOTE | 2018-01-27 15:29 | EDM.PDOC ---
ED HPI GENERAL MEDICAL PROBLEM - General Chief Complaint: Laceration Stated Complaint: INJURY FINGER ON LT HAND Time Seen by Provider: 01/27/18 15:29 Source of Information: Reports: Patient - History of Present Illness INITIAL COMMENTS - FREE TEXT/NARRATIVE: HISTORY AND PHYSICAL: History of present illness: [Patient presents by private vehicle He cut the tip of his left index finger with a jeferson/paint grinder stone mill approximately 0.5 cm linear laceration simple all in the distal tip of his finger it had bled well patient presented as the wound bleeding initially was not stopping, however he did place a bandaide on the tip of his finger and bleeding and resolved by arrival entire limb is neurovascularly intact tendon function intact and extensor No fever nausea vomiting chills sweats Tetanus status is up to date and is on file Review of systems: As per history of present illness and below otherwise all systems reviewed and negative. Past medical history: As per history of present illness and as reviewed below otherwise noncontributory. Surgical history: As per history of present illness and as reviewed below otherwise noncontributory. Social history: No reported history of drug or alcohol abuse. Family history: As per history of present illness and as reviewed below otherwise noncontributory. Physical exam: HEENT: Atraumatic, normocephalic, pupils reactive, negative for conjunctival pallor or scleral icterus, mucous membranes moist, throat clear, neck supple, nontender, trachea midline. Lungs: Clear to auscultation, breath sounds equal bilaterally, chest nontender. Heart: S1S2, regular, negative for clicks, rubs, or JVD. Abdomen: Soft, nondistended, nontender. Negative for masses or hepatosplenomegaly. Negative for costovertebral tenderness. Pelvis: Stable nontender. Genitourinary: Deferred. Rectal: Deferred. Extremities: Atraumatic, negative for cords or calf pain. Neurovascular unremarkable. Neuro: Awake, alert, oriented. Cranial nerves II through XII unremarkable. Cerebellum unremarkable. Motor and sensory unremarkable throughout. Exam nonfocal. Diagnostics: [Clinical ] Therapeutics: [Tetanus status is up-to-date Keflex 500 by mouth twice a day #20 no refill ] No sutures required Standard wound care instruction Bacitracin Telfa tube dressing Impression: [ 0.5 cm linear laceration distal left index finger ] Definitive disposition and diagnosis as appropriate pending reevaluation and review of above. Left 2-Index finger Pain Score (Numeric/FACES): 4 - Related Data Allergies Allergy/AdvReac Type Severity Reaction Status Date / Time No Known Allergies Allergy Verified 03/10/17 20:44 Home Meds: Home Meds Citalopram [Citalopram HBr] 10 mg PO DAILY 12/14/13 [History] buPROPion HCl [Wellbutrin SR] 150 mg PO DAILY 12/14/13 [History] Metoprolol Tartrate [Lopressor] 100 mg PO Q12HR #30 tablet 03/12/17 [Rx] Lisinopril 10 mg PO DAILY 01/27/18 [History] Rivaroxaban [Xarelto] 20 mg PO DAILY 01/27/18 [History] Past Medical History - Past Health History Medical/Surgical History: Denies Medical/Surgical History Cardiovascular History: Reports: None Respiratory History: Reports: Sleep Apnea Other Respiratory History: Uses CPAP at home Gastrointestinal History: Reports: None Genitourinary History: Reports: None Musculoskeletal History: Reports: Fracture Other Musculoskeletal History: Fractured collar bone in "seventh grade" Neurological History: Reports: None Psychiatric History: Reports: Anxiety, Depression Endocrine/Metabolic History: Reports: None Hematologic History: Reports: None Immunologic History: Reports: None Oncologic (Cancer) History: Reports: None Dermatologic History: Reports: None - Infectious Disease History Infectious Disease History: Reports: Chicken Pox - Past Surgical History HEENT Surgical History: Reports: Other (See Below) Other HEENT Surgeries/Procedures: facial reconstruction Cardiovascular Surgical History: Reports: None Respiratory Surgical History: Reports: None Musculoskeletal Surgical History: Reports: None Social & Family History - Family History Family Medical History: Noncontributory Cardiac: Reports: [place] Other Cardiac Family History: Father had heart attack X 5 years ago - Caffeine Use Caffeine Use: Reports: Soda ED ROS GENERAL - Review of Systems Review Of Systems: See Below ED EXAM, SKIN/RASH Exam: See Below Course - Vital Signs Last Recorded V/S: Last Vital Signs Temp 97.2 F 01/27/18 15:21 Pulse 79 01/27/18 15:21 Resp 18 01/27/18 15:21 BP 147/91 H 01/27/18 15:21 Pulse Ox 97 01/27/18 15:21 Departure - Departure Time of Disposition: 15:49 Disposition: Home, Self-Care 01 Condition: Good Clinical Impression: Laceration - Discharge Information Referrals: PCP,None [Primary Care Provider] - Forms: ED Department Discharge Additional Instructions: The following information is given to patients seen in the emergency department who are being discharged to home. This information is to outline your options for follow-up care. We provide all patients seen in our emergency department with a follow-up referral. The need for follow-up, as well as the timing and circumstances, are variable depending upon the specifics of your emergency department visit. If you don't have a primary care physician on staff, we will provide you with a referral. We always advise you to contact your personal physician following an emergency department visit to inform them of the circumstance of the visit and for follow-up with them and/or the need for any referrals to a consulting specialist. The emergency department will also refer you to a specialist when appropriate. This referral assures that you have the opportunity for follow-up care with a specialist. All of these measure are taken in an effort to provide you with optimal care, which includes your follow-up. Under all circumstances we always encourage you to contact your private physician who remains a resource for coordinating your care. When calling for follow-up care, please make the office aware that this follow-up is from your recent emergency room visit. If for any reason you are refused follow-up, please contact the [facility] emergency department at and asked to speak to the emergency department charge nurse.
[2018-01-27] MEDS ORDERED: Bacitracin Oint 1 GM U/D Packet ONE (15:54)
== END 2018-01-27 16:10 | disposition home or self-care (01) ==
LOC: MW.ED 15:02
DX: S61.211A Laceration without foreign body of left index finger without damage to nail, initial encounter (principal); Z79.899 Other long term (current) drug therapy; W23.0XXA Caught, crushed, jammed, or pinched between moving objects, initial encounter; W31.89XA Contact with other specified machinery, initial encounter
CPT/HCPCS: 99282; 99283